=== PATIENT | female | born 1975 | race African-American/Black ===

== ENCOUNTER 2018-12-15 16:54 | Emergency (ER) | payer OTHER ==
[~2018-12-15] VITALS: Ht 172.7 cm; Wt 99.8 kg
[2018-12-15] MEDS ORDERED: IMITREX100 MG PO (17:13)
[2018-12-15] MEDS ORDERED: INDERAL80 MG PO (17:14)
[2018-12-15] MEDS ORDERED: NORVASC10 MG PO (17:15)
[2018-12-15 17:34] LABS: ABSOLUTE NEUTROPHILS 4.1 thou/uL (1.4-8.2); BASOPHILS 1.4 % (0.0-2.0); EOSINOPHILS 1.9 % (0.0-3.0); HEMATOCRIT 41.7 % (37.0-47.0); HEMOGLOBIN 14.3 gm/dL (12.0-15.0); MCHC 34.3 g/dL (28.0-37.0); MCV 90.3 fL (80.0-100.0); MONOCYTES 4.5 % (1.0-8.0); PLATELET COUNT 327 thou/uL (150-400); POLYS 48.2 % (36.0-66.0); RBC 4.62 mil/uL (4.20-5.00); RDW 15.5 % (10.5-14.5); WBC 8.5 thou/uL (4.0-11.0)
[2018-12-15 17:44] LABS: ANION GAP 11 mmol/L (7-16); BUN 10 mg/dL (7-18); CALCIUM 9.9 mg/dL (8.5-10.1); CHLORIDE 104 mmol/L (98-107); CO2 24 mmol/L (21-32); CREATININE 0.6 mg/dL (0.6-1.0); GLUCOSE 162 mg/dL (74-106); POTASSIUM 3.8 mmol/L (3.5-5.1); SODIUM 139 mmol/L (136-145)
[2018-12-15 17:54] LABS: ALBUMIN 3.6 g/dL (3.4-5.0); SGOT 17 U/L (15-37); SGPT 29 U/L (30-65); TOTAL BILIRUBIN 0.3 mg/dL (<0.1-1.0); TOTAL PROTEIN 7.9 g/dL (6.4-8.2); TROPONIN-I <0.06 ng/mL (<0.06)
[2018-12-15] MEDS ORDERED: DOXYCYCLINE 10100 MG PO (19:59)
[2018-12-15] MEDS ORDERED: BUTALB-APAP-CA1 EACH PO (19:59)
[2018-12-15 20:15] VITALS: BP 151/90
--- NOTE | 2018-12-16 08:32 | EKG ---
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1975 Requested By: Humera Tee Order Number: [id number] MD: Jus Stahl Measurements Intervals [place] Rate: 74 P: 46 MD: 191 QRS: 60 QRSD: 88 T: 18 QT: 377 QTc: 419 Interpretive Statements Sinus rhythm Consider anterior infarct Compared to ECG 01/17/2009 15:56:33 Nonspecific change in the ST and T-wave segments [place] has shifted leftward Electronically Signed On 12-16-2018 8:32:30 CDT by Jus Stahl [email or web address] <ELECTRONICALLY SIGNED> By: Jus Stahl MD, [facility] 12/16/18 0832 00 00 Jus Stahl MD, [facility] /EPI
== END 2018-12-15 20:17 | disposition home or self-care (01) ==
LOC: ER 16:54
PROVIDERS: Emergency Medicine
DX: G43.909 Migraine, unspecified, not intractable, without status migrainosus (principal); R07.89 Other chest pain; J18.9 Pneumonia, unspecified organism; J45.909 Unspecified asthma, uncomplicated; I10 Essential (primary) hypertension; K21.9 Gastro-esophageal reflux disease without esophagitis; M10.9 Gout, unspecified; F17.210 Nicotine dependence, cigarettes, uncomplicated; Z98.890 Other specified postprocedural states; Z90.49 Acquired absence of other specified parts of digestive tract; Z88.0 Allergy status to penicillin; Z91.018 Allergy to other foods

== ENCOUNTER 2019-11-01 02:31 | Emergency (ER) | payer BC ==
[~2019-11-01] VITALS: Ht 170.2 cm; Wt 99.3 kg
[~2019-11-01 02:31] MED LIST: BUTALB-APAP-CA1 EACH PO; DOXYCYCLINE 10100 MG PO; IMITREX100 MG PO; INDERAL80 MG PO; NORVASC10 MG PO
[2019-11-01] MEDS ORDERED: AMITRIPTYLINE H25 M2 PO (02:37)
[2019-11-01] MEDS ORDERED: NEURONTIN 400400 M1 PO (02:38)
[2019-11-01] MEDS ORDERED: RIZATRIPTAN10 MG PO (02:38)
[2019-11-01 03:05] LABS: ABSOLUTE NEUTROPHILS 3.1 thou/uL (1.4-8.2); BASOPHILS 1.1 % (0.0-2.0); EOSINOPHILS 1.2 % (0.0-3.0); HEMOGLOBIN 14.3 gm/dL (12.0-15.0); LYMPHOCYTES 48.7 % (24.0-44.0); MCH 32.5 pg (26.0-34.0); MCV 95.8 fL (80.0-100.0); MONOCYTES 3.9 % (1.0-8.0); PLATELET COUNT 219 thou/uL (150-400); POLYS 45.1 % (36.0-66.0); RBC 4.39 mil/uL (4.20-5.00); RDW 13.7 % (10.5-14.5); WBC 6.9 thou/uL (4.0-11.0)
[2019-11-01 03:09] LABS: CALCIUM 9.3 mg/dL (8.5-10.1); CREATININE 1.1 mg/dL (0.6-1.0); POTASSIUM 3.3 mmol/L (3.5-5.1)
[2019-11-01 03:15] LABS: ALBUMIN 3.9 g/dL (3.4-5.0); TOTAL BILIRUBIN 0.7 mg/dL (0.2-1.0); TOTAL PROTEIN 7.1 g/dL (6.4-8.2)
[2019-11-01] MEDS ORDERED: CLONAZEPAM 0.50.5 M1 PO (03:26)
[2019-11-01] MEDS ORDERED: PROZAC20 MG PO (03:26)
[2019-11-01] MEDS ORDERED: CLOBAZAM10 MG PO (03:26)
[2019-11-01] MEDS ORDERED: BOTOX100 UNIT IM (03:29)
[2019-11-01 06:17] VITALS: BP 135/85
--- NOTE | 2019-11-01 08:31 | EKG ---
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 : 1975 Requested By: Theodore Arellano Order Number: [id number] MD: Jus Stahl Measurements Intervals [place] Rate: 68 P: 45 SC: 180 QRS: 92 QRSD: 93 T: 1 QT: 377 QTc: 401 Interpretive Statements Sinus rhythm Anterior infarct, old Nonspecific ST and T wave abnormality Prolonged QT interval Compared to ECG 12/15/2018 17:01:48 QT interval has lengthened Electronically Signed On 11-01-2019 8:30:46 CDT by Jus Stahl [email or web address] <ELECTRONICALLY SIGNED> By: Jus Stahl MD, [facility] 11/01/19 0830 9 0300 Jus Stahl MD, [facility] /EPI
== END 2019-11-01 06:41 | disposition home or self-care (01) ==
LOC: ER 02:31
PROVIDERS: Emergency Medicine
DX: R56.9 Unspecified convulsions (principal); R73.9 Hyperglycemia, unspecified; I10 Essential (primary) hypertension; K21.9 Gastro-esophageal reflux disease without esophagitis; J45.909 Unspecified asthma, uncomplicated; M10.9 Gout, unspecified; F17.210 Nicotine dependence, cigarettes, uncomplicated; Z79.899 Other long term (current) drug therapy; Z88.0 Allergy status to penicillin; Z91.018 Allergy to other foods; Z79.2 Long term (current) use of antibiotics